=== PATIENT | male | born 1980 | race Caucasian/White ===

== ENCOUNTER 2016-07-31 15:35 | Emergency (ER) | payer SELFPAY ==
[2016-07-31 15:36] VITALS: BMI 25.0
[2016-07-31 16:15] VITALS: BP 128/60; PULSE 97; TEMP 98.8
[2016-07-31] MEDS ORDERED: TRIMETHOPRIM-SULFAMETHOXAZOLE TAB PO ONE (16:58)
[2016-07-31] MEDS ORDERED: CEPHALEXIN 500 MG CAP PO ONE (16:58)
[2016-07-31] MEDS ORDERED: LIDOCAINE 2% 5 ML (PRESERVATIVE FREE) VIAL INF ONE (16:58)
[2016-07-31] MEDS ORDERED: OXYCODONE HCL 5 MG TABLET PO ONE (16:58)
--- NOTE | 2016-07-31 17:59 | EDPRACDOC ---
- General Information Chief Complaint: Wound Stated Complaint: ABSCESS RT SIDE OF NECK Time Seen by Provider: 07/31/16 16:20 Information Source: Patient Mode of Arrival:: Car Home Medications: Home Medications Cephalexin Monohydrate [Keflex] 500 mg PO Q6H #28 cap 07/31/16 Oxycodone HCl/Acetaminophen [Percocet 5-325 mg Tablet] 1 tab PO Q4-6H PRN #20 tab 07/31/16 Sulfamethoxazole/Trimethoprim [Bactrim Ds Tablet] 1 tab PO BID #14 tab 07/31/16 Allergies/Adverse Reactions: Allergies Allergy/AdvReac Type Severity Reaction Status Date / Time Penicillins Allergy Severe Hives* Verified 12/16/15 01:33 - History of Present Illness Onset: 2 day HPI: PT PRESENTS WITH RED, SWOLLEN PAINFUL MASS TO THE RIGHT SIDE OF HIS NECK. STATES IT HAS BEEN WORSENING OVER THE PAST SEVERAL DAYS. STATES HE SCRATCHED A BUMP IN THE AREA. ALSO STATES HE SHOT UP [place] IN THE AREA APPROX 6 MONTHS AGO WHICH LEFT A "BUMP" TO THE AREA. DENIES NAUSEA, VOMITING, CHILLS OR FEVER. Location: Reports: Neck Last Tetanus: Yes Relevent History Of: Reports: IV Drug Use Prior Abscess: Reports: Different Pain: Reports: Moderate Quality: Reports: Painful, Red Associated Signs & Symptoms: Reports: None ED Past Medical History - History Reviewed Yes Nurses notes reviewed and agree except as marked - Patient Medical History Neurological History: Denies: Cerebrovascular Accident, Seizures, Migraine, Dementia, Epilepsy, [place] Syndrome, Parkinson's, Metabolic encephalopathy, Multiple Sclerosis, Myasthenia Gravis, Toxic Encephalopathy Cardiac History: Denies: Coronary Artery Disease, Atrial Fibrillation, Hypertension, Congestive Heart Failure, Heart Attack, Cardiac Catheterization, CABG, Stress Test, Hypercholesterolemia, Internal Defibrillator, Pacemaker, Cardiomyopathy, Valvular Heart Disease, Syncope Respiratory History: Denies: Asthma, COPD, Bronchitis, Asbestosis, Aspiration Pneumonia, Cough, Chronic Bronchitis, Pneumonia, Emphysema, Pulmonary Embolism GI/ History: Reports: Kidney Stones Musculoskeletal History: Reports: Arthritis, Gout Psychological History: Reports: Substance Use Disorder. Denies: Depression Systemic History: Denies: Cancer, Anemia, Diabetes, Hyperthyroidism, Hypothyroidism, HIV, Lupus Surgical History: Denies: Cholecystectomy, CABG, Hysterectomy, Angioplasty, Cardiac Catheterization, Hernia Surgery, Tonsillectomy, Tonsillectomy/ Adnoidectomy, Other - Family Medical History Reports: Hypertension (Father), Diabetes (Father), Stroke (Father), Cardiac Disorders (Father). Denies: Cancer - Social Medical History Smoking Status: Heavy tobacco smoker (5 or more cigarettes/day or daily pipe/ cigar) Social History: Reports: Substance Use Disorder EDM Review of Systems - Review of Systems ROS Negative Except as Marked: Yes All systems reviewed and were negative except as marked - Physical Exam Constitutional: Alert Oriented to: Time, Person, Place Last recorded Vital Signs: Last Vital Signs Temp 98.8 F 07/31/16 16:11 Pulse 97 07/31/16 16:11 Resp 20 07/31/16 16:11 BP 128/60 07/31/16 16:11 Pulse Ox 99 07/31/16 16:11 Oxygen Pulse Oxygen Saturation 99 O2 Device Room Air Oxygen Flow Rate Fraction of Inspired Oxygen ( FIO2) - HEENT Head: Normal ( normocephalic) Eye Exam: Normal (PERRL, EOMI, Sclera white) Oropharynx: Normal (Pharynx:Moist without exudate,Gums-no swelling) Nose: No Symptoms Reported (septum midline) Neck: Other (RED, TENDER MASS NOTED TO RIGHT NECK) - Respiratory/Cardiovascular Respiratory: Normal - CTA (BBS clear to auscultation without adventitious sounds ) Cardiovascular: Normal (RRR without murmur, gallop or rub) - GI Auscultation: Normal (NABS) Palpation: Normal (Soft,No rebound or guarding, non distended) Tenderness: Non tender Osman's Sign: Negative Rectal Exam: Deferred - Musculoskeletal Back: Normal (Non-Tender) Extremities: Normal (Normal tone, Pulses 2+ No cyanosis or edema, FROM) - Integumentary Skin: Normal, Warm, Dry Lymphatics: Normal (no adenopathy) - Neurologic Memory Impaired: Normal Motor Function: Normal (Normal tone, Pulses 2+ No cyanosis or edema, FROM) Cranial Nerve: Normal (CN II-X11 intact sensation, strength 5/5) Cerebellar: Normal Mood Description: Normal Perception: Normal ED Abscess/Mass Exam - Integumentary Skin: Normal Mass: Size (PLUM), Red, Tender, Warm, Firm, Local Cellulitis Lymphatics: Normal ED Procedures - Incision and Drainage Informed of risks, benefits and alternatives described.: Yes Informed Consent Signed: Verbal Site: RIGHT NECK Indication: Painful Mass Anesthetic: Lidocaine Prep: Betadine Blade Size: 11 Incised Site drained: Reports: Blood, Pus Incised site was: Irrigated - Differential Diagnosis Abscess Decision Time to Discharge: 18:01 - Departure Disposition: Home Condition: Stable Final Diagnosis: Abscess Instructions: Abscess (ED) Education/Counseling Given To: Patient Education/Counseling Given Regarding: Diagnosis, Treatment, Prognosis, Follow Up Referrals: Golden Early MD [Staff Physician] - One Week Prescriptions: Cephalexin Monohydrate [Keflex] 500 mg PO Q6H #28 cap Oxycodone HCl/Acetaminophen [Percocet 5-325 mg Tablet] 1 tab PO Q4-6H PRN #20 tab PRN Reason: Pain Sulfamethoxazole/Trimethoprim [Bactrim Ds Tablet] 1 tab PO BID #14 tab Additional Instructions: KEEP AREA CLEAN AND DRY. CHANGE DRESSING TWICE A DAY. RETURN TO THE ED IN TWO DAYS FOR A WOUND CHECK. RETURN SOONER IF THE AREA WORSENS OR IF YOU BEGIN TO SHOW SIGNS OR SYMPTOMS OF INFECTION SUCH NAUSEA, VOMITING, CHILLS, FEVER. TAKE ALL YOUR ANTIBIOTICS PRESCRIBED. FOLLOW UP WITH PRIMARY CARE PROVIDER NEXT WEEK. KEEP AREA ELEVATED AND YOU MAY PLACE ICE ON THE AREA FOR COMFORT.
== END 2016-07-31 18:45 | disposition home or self-care (01) ==
LOC: ED 15:35
DX: L02.11 Cutaneous abscess of neck (principal)
CPT/HCPCS: 10060; 99282; J2001; J3490